=== PATIENT | female | born 1960 | race Two or more races ===

== ENCOUNTER → 2016-06-08 | Outpatient (CLI) | payer OTHER ==
[~2016-06-08] VITALS: Ht 160 cm; Wt 82.6 kg
[~2016-06-08] MED LIST: MOTRIN800 MG PO; OMEPRAZOLE40 M1 PO
== END | disposition home or self-care (01) ==
LOC: AMB 10:00
DX: Z12.11 Encounter for screening for malignant neoplasm of colon (principal); K29.50 Unspecified chronic gastritis without bleeding; B96.81 Helicobacter pylori [H. pylori] as the cause of diseases classified elsewhere; R10.13 Epigastric pain; K21.9 Gastro-esophageal reflux disease without esophagitis
CPT/HCPCS: 88305; 88342 TC; J2250; J3010

== ENCOUNTER 2016-07-05 09:10 | Day surgery (SDC) | payer OTHER ==
[~2016-07-05] VITALS: Ht 160 cm; Wt 82.6 kg
== END 2016-07-05 11:00 | disposition home or self-care (01) ==
LOC: PAIN 09:10 → SDC 09:30 → PAIN 11:00
PROC: 3E0S33Z Introduction of Anti-inflammatory into Epidural Space, Percutaneous Approach (ICD-10-PCS; principal; 2016-07-05)
DX: M47.24 Other spondylosis with radiculopathy, thoracic region (principal); F41.9 Anxiety disorder, unspecified; M51.04 Intervertebral disc disorders with myelopathy, thoracic region; M54.12 Radiculopathy, cervical region; M51.36 Other intervertebral disc degeneration, lumbar region; M79.1 Myalgia; M47.816 Spondylosis without myelopathy or radiculopathy, lumbar region; G89.29 Other chronic pain; M25.561 Pain in right knee; K21.9 Gastro-esophageal reflux disease without esophagitis; E66.9 Obesity, unspecified; Z68.33 Body mass index [BMI] 33.0-33.9, adult
CPT/HCPCS: J1100; J2250; J3010

== ENCOUNTER 2016-08-02 08:50 | Day surgery (SDC) | payer OTHER ==
[~2016-08-02] VITALS: Ht 167.6 cm; Wt 88.0 kg
== END 2016-08-02 11:18 | disposition home or self-care (01) ==
LOC: PAIN 08:50 → SDC 09:30 → PAIN 11:18
DX: M47.24 Other spondylosis with radiculopathy, thoracic region (principal); M47.816 Spondylosis without myelopathy or radiculopathy, lumbar region; M54.12 Radiculopathy, cervical region; M51.36 Other intervertebral disc degeneration, lumbar region; K21.9 Gastro-esophageal reflux disease without esophagitis; D50.9 Iron deficiency anemia, unspecified; E66.9 Obesity, unspecified; Z68.31 Body mass index [BMI] 31.0-31.9, adult
CPT/HCPCS: J1030; J2250; J3010

== ENCOUNTER 2016-09-07 03:39 | Emergency (ER) | payer OTHER ==
[~2016-09-07] VITALS: Ht 167.6 cm; Wt 88.9 kg
[2016-09-07 04:55] LABS: HEMATOCRIT 32.5 % (36.0-46.0); MCH 27.1 PG (29.0-34.0); MCHC 34.5 G/DL (30.0-36.0); MCV 78.5 FL (83-99); MEAN PLAT.VOLUME 10.3 uM^3 (9.5-12.4); PLATELET COUNT 258 K/uL (156-360); RBC DIS.WIDTH-CV 14.3 % (11.8-14.6); RBC DIS.WIDTH-SD 41.1 % (39-53); RED BLOOD COUNT 4.14 M/uL (3.80-5.20); WHITE BLOOD COUNT 8.8 K/uL (4.1-10.2)
[2016-09-07] MEDS ORDERED: NAPROSYN500 MG PO (05:01)
[2016-09-07] MEDS ORDERED: MEDROL DOSEPAK4 MG PO (05:01)
[2016-09-07] MEDS ORDERED: FLEXERIL10 MG PO (05:01)
[2016-09-07 05:06] LABS: CHLORIDE 107 mEq/L (99-109); POTASSIUM 3.6 mEq/L (3.7-5.4); SODIUM 141 mEq/L (136-147)
[2016-09-07 05:07] LABS: GLUCOSE 132 mg/dL (70-99)
[2016-09-07 05:09] LABS: ANION GAP 10 MEQ/L (2-14)
[2016-09-07 05:11] LABS: GFR ESTIMATE (CALCULATED) > 59 mL/min/
[2016-09-07 05:12] LABS: UREA NITROGEN (BUN) 12 mg/dL (9-23)
[2016-09-07 05:29] VITALS: BP 144/99
== END 2016-09-07 05:30 | disposition home or self-care (01) ==
LOC: EME 03:39
PROVIDERS: Emergency Medicine
DX: M54.12 Radiculopathy, cervical region (principal)
CPT/HCPCS: 72125; 80048; 85027; 99281; 99284; J7512